=== PATIENT | male | born 1970 | race Caucasian/White ===

== ENCOUNTER 2017-01-07 22:06 | Emergency (ER) | payer SELFPAY ==
[~2017-01-07] VITALS: Ht 167.6 cm; Wt 72.3 kg
[2017-01-07 22:41] LABS: DAU SCREEN DISCLAIMER
[2017-01-07 22:54] LABS: ASPARTATE AMINO TRANSFERASE 114 U/L (15-37); BLOOD UREA NITROGEN 7 mg/dL (7-18)
[2017-01-07 22:57] LABS: ACETAMINOPHEN < 2 mcg/mL (10-30)
[2017-01-07 23:15] LABS: HEMATOCRIT 50.5 % (39.2-51.8); HEMOGLOBIN 16.8 g/dL (13.7-18.0); WHITE BLOOD COUNT 8.1 x10^3/uL (3.4-10)
[2017-01-08 09:19] VITALS: BP 162/95
== END 2017-01-08 10:28 | disposition home or self-care (01) ==
LOC: ED 23:59
DX: F32.1 Major depressive disorder, single episode, moderate (principal); F10.120 Alcohol abuse with intoxication, uncomplicated
CPT/HCPCS: 36415; 80053; 80307; 80329; 85025; G0480

== ENCOUNTER 2017-05-09 20:50 | Emergency (ER) | payer SELFPAY ==
[~2017-05-09] VITALS: Ht 167.6 cm; Wt 71.0 kg
[2017-05-10 05:38] VITALS: BP 110/65
== END 2017-05-10 09:10 | disposition home or self-care (01) ==
LOC: ED 23:42
DX: F10.229 Alcohol dependence with intoxication, unspecified (principal)
CPT/HCPCS: 99283

== ENCOUNTER 2017-05-31 19:38 | Emergency (ER) | payer OTHER ==
[~2017-05-31] VITALS: Ht 167.6 cm; Wt 69.1 kg
[2017-05-31 19:47] VITALS: BP 126/90
[2017-05-31] MEDS ORDERED: KETOROLAC 30 MG/1 ML IM ONE (20:30)
[2017-05-31] MEDS ORDERED: KETOROLAC 30 MG/1 ML ONE (20:34)
[2017-05-31 22:17] LABS: RAPID INFLUENZA A Negative (Negative); RAPID INFLUENZA B Negative (Negative)
== END 2017-05-31 23:25 | disposition home or self-care (01) ==
LOC: ED 21:09
DX: B34.9 Viral infection, unspecified (principal)
CPT/HCPCS: 71046; 86756; 87400; 99285

== ENCOUNTER 2017-10-13 04:01 | Emergency (ER) | payer MEDICAID, OTHER ==
[~2017-10-13] VITALS: Ht 167.6 cm; Wt 66.4 kg
[2017-10-13 04:03] VITALS: BP 114/73
[2017-10-13] MEDS ORDERED: HYDROcodone/APAP 5/325 TABLET ONE (04:45)
[2017-10-13] MEDS ORDERED: HYDROcodone/APAP 5/325 TABLET PO ONE (05:00)
== END 2017-10-13 06:42 | disposition home or self-care (01) ==
LOC: ED 06:28
DX: R07.81 Pleurodynia (principal); F17.210 Nicotine dependence, cigarettes, uncomplicated
CPT/HCPCS: 99284

== ENCOUNTER 2017-10-13 19:03 | Emergency (ER) | payer MEDICAID ==
[~2017-10-13] VITALS: Ht 167.6 cm; Wt 66.0 kg
[2017-10-13 19:11] VITALS: BP 127/91
[2017-10-13] MEDS ORDERED: KETOROLAC 30 MG/1 ML ONE (19:21)
[2017-10-13] MEDS ORDERED: KETOROLAC 30 MG/1 ML IM ONE (19:30)
== END 2017-10-13 19:27 | disposition home or self-care (01) ==
LOC: ED 19:20
DX: S22.32XA Fracture of one rib, left side, initial encounter for closed fracture (principal); X58.XXXA Exposure to other specified factors, initial encounter; Y93.89 Activity, other specified; Y92.89 Other specified places as the place of occurrence of the external cause; Y99.8 Other external cause status
CPT/HCPCS: 96372; 99283; J1885

== ENCOUNTER 2018-01-04 17:12 | Emergency (ER) | payer MEDICAID ==
[~2018-01-04] VITALS: Ht 167.6 cm; Wt 67.0 kg
[2018-01-04] MEDS ORDERED: FLUO20CA19 PO (17:20)
[2018-01-04 18:07] LABS: BASOPHILS # (AUTO) 0.02 x10^3/uL (0-0.1); BASOPHILS % (AUTO) 1 % (0-1); EOSINOPHILS # (AUTO) 0.13 x10^3/uL (0-0.4); EOSINOPHILS % (AUTO) 3 % (1-7); LYMPHOCYTES # (AUTO) 1.04 x10^3/uL (1-3.4); LYMPHOCYTES % (AUTO) 28 % (22-44); MD NO; MEAN CORPUSCULAR HEMOGLOBIN 32.6 pg (27.5-34.5); MEAN CORPUSCULAR HGB CONC 34.3 g/dL (33.2-36.2); MEAN CORPUSCULAR VOLUME 94.9 fL (81-97); MEAN PLATELET VOLUME 7.3 fL (7.4-10.4); MONOCYTES # (AUTO) 0.66 x10^3/uL (0.2-0.8); MONOCYTES % (AUTO) 18 % (2-9); NEUTROPHILS # (AUTO) 1.81 x10^3/uL (1.8-6.8); NEUTROPHILS % (AUTO) 49 % (42-75); PLATELET COUNT 158 x10^3/uL (130-400); RED BLOOD COUNT 4.55 x10^6/uL (4.38-5.82); RED CELL DISTRIBUTION WIDTH 12.5 % (9.4-14.8)
[2018-01-04 18:14] LABS: ANION GAP 10 mmol/L (5-15); CALCIUM 8.5 mg/dL (8.5-10.1); CHLORIDE 110 mmol/L (98-107)
[2018-01-04 18:30] LABS: ALANINE AMINOTRANSFERASE 154 U/L (12-78); ALKALINE PHOSPHATASE 70 U/L (45-117); BILIRUBIN,TOTAL 0.4 mg/dL (0.2-1.0); CREATININE 0.88 mg/dL (0.7-1.3); TOTAL PROTEIN 8.3 g/dL (6.4-8.2)
[2018-01-04 18:31] LABS: ACETAMINOPHEN < 2 mcg/mL (10-30); SALICYLATE LEVEL < 1.7 mg/dL (2.8-20.0)
[2018-01-04 20:18] LABS: AMPHETAMINE SCREEN, URINE Negative (Negative); BARBITURATE SCREEN, URINE Negative (Negative); BENZODIAZEPINE SCREEN, URINE Negative (Negative); CANNABINOID SCREEN, URINE Negative (Negative); COCAINE SCREEN, URINE Negative (Negative); METHADONE SCREEN, URINE Negative (Negative)
[2018-01-04 20:20] LABS: OPIATE SCREEN, URINE Negative (Negative)
[2018-01-05 00:44] VITALS: BP 97/58
== END 2018-01-05 01:38 | disposition home or self-care (01) ==
LOC: ED 01-05 01:20
DX: F10.129 Alcohol abuse with intoxication, unspecified (principal); F19.10 Other psychoactive substance abuse, uncomplicated
CPT/HCPCS: 36415; 80053; 80307; 80329; 85025; 99284; G0480

== ENCOUNTER 2018-01-28 04:18 | Emergency (ER) | payer MEDICAID ==
[~2018-01-28] VITALS: Ht 167.6 cm; Wt 64.0 kg
[~2018-01-28 04:18] MED LIST: FLUO20CA19 PO
[2018-01-28 04:39] VITALS: BP 144/92
== END 2018-01-28 05:35 | disposition home or self-care (01) ==
LOC: ED 05:34
DX: K02.9 Dental caries, unspecified (principal)
CPT/HCPCS: 64400; 99284

== ENCOUNTER 2018-01-28 15:05 | Emergency (ER) | payer MEDICAID ==
[~2018-01-28] VITALS: Ht 167.6 cm; Wt 66.8 kg
[2018-01-28 15:14] VITALS: BP 112/78
== END 2018-01-28 16:16 | disposition home or self-care (01) ==
LOC: ED 15:45
DX: K02.9 Dental caries, unspecified (principal); F10.229 Alcohol dependence with intoxication, unspecified
CPT/HCPCS: 64400; 99284

== ENCOUNTER 2018-02-03 20:10 | Emergency (ER) | payer MEDICAID ==
[~2018-02-03] VITALS: Ht 167.6 cm; Wt 67.0 kg
[2018-02-03 20:23] VITALS: BP 127/86
== END 2018-02-03 21:19 | disposition home or self-care (01) ==
LOC: ED 20:43
DX: F10.129 Alcohol abuse with intoxication, unspecified (principal); F39 Unspecified mood [affective] disorder; Z72.9 Problem related to lifestyle, unspecified; F32.9 Major depressive disorder, single episode, unspecified
CPT/HCPCS: 99283